=== PATIENT | female | born 1965 | race Caucasian/White ===

== ENCOUNTER 2019-10-10 09:41 | Outpatient (CLI) | payer OTHER ==
--- NOTE | 2019-10-10 11:11 | MRI ---
Exam: MRI thoracic spine without contrast HISTORY: Segmental somatic dysfunction of the thoracic spine. Back pain radiating to the legs. COMPARISON: None FINDINGS: Appropriate T1 marrow signal intensity of the thoracic vertebra. Thoracic spine vertebral body height is maintained. There is no fracture. Intrinsic T1 hyperintensity with associated T2 hyperintensity at T4, T10 and T12 compatible with a vertebral body hemangiomas. No significant STIR hyperintensity t o suggest vertebral body edema or ligamentous injury Visualized mediastinum is unremarkable. Visualized solid organs and lung parenchyma are unremarkable. Probable 0.8 cm cyst emanating from the upper pole of the right kidney The thoracic cord has a normal size and signal intensity. No cord malacia. No cord expansion. Conus m edullaris terminates beyond the upper aspect of L1 Throughout the thoracic spine, there is no significant central canal stenosis or significant neural f oraminal narrowing IMPRESSION: Unremarkable noncontrast thoracic spine MRI. No significant central canal stenosis or significant chris ral foraminal narrowing throughout the thoracic spine.
--- NOTE | 2019-10-10 11:38 | MRI ---
MRI LUMBAR SPINE WITHOUT CONTRAST: HISTORY: Low back pain. COMPARISON: None. FINDINGS: Appropriate T1 marrow signal intensity of the lumbar vertebrae. Lumbar spine vertebral body height is maintained. No fracture. No significant STIR hyperintensity to suggest vertebral body edema or ligamentous injury. Appropriate signal intensity of the paraspinal muscles. The visualized solid organs are grossly unremarkable. The conus medullaris terminates at the T12-L1 disc space. Spondylolisthesis: L4-L5: 1.2 mm of anterolisthesis T12-L1:Adequate disc hydration. No significant central canal stenosis or significant neural foraminal narrowing L1-L2: Adequate disc hydration. No significant central canal stenosis or significant neural foraminal narrowing. L2-L3: Adequate disc hydration. No significant central canal stenosis or significant neural foraminal narrowing. L3-L4: Adequate disc hydration. No significant central canal stenosis or significant neural foraminal narrowing. Trace amount of fluid in both facet joints. L4-L5: Adequate disc hydration. Generalized disc bulge minimally flattens the ventral thecal sac. No significant central canal stenosis. Minimal encroachment upon the right subarticular zone due to disc material and posterior element hypertrophy. Minimal obscuration of the traversing right L5 nerve root. Bilateral facet hypertrophy with fluid in both facet joints. Mild to moderate right neural foraminal narrowing. Left neural foramen is patent. L5-S1: No significant posterior disc abnormality. No significant central canal stenosis or significan t neural foraminal narrowing. IMPRESSION: 1. Grade 1 anterolisthesis of L4 upon L5. 2. Narrowing of the right subarticular zone with minimal encroachment due to disc material and food beverage attendant ior element hypertrophy. Minimal obscuration of the traversing right L5 nerve root. 3. Bilateral facet hypertrophy at L4-L5 with fluid in both facet joints. Transcribed Date/Time: 10/10/2019 11:45 AM
== END 2019-10-10 09:42 | disposition home or self-care (01) ==
LOC: BICMRI 09:41
PROVIDERS: ATTEND Chiropractor
DX: M99.03 Segmental and somatic dysfunction of lumbar region (principal); M54.5 Low back pain; M99.02 Segmental and somatic dysfunction of thoracic region; M54.6 Pain in thoracic spine; M43.16 Spondylolisthesis, lumbar region; M53.86 Other specified dorsopathies, lumbar region
CPT/HCPCS: 72146; 72148

== ENCOUNTER 2023-01-26 18:35 | Observation (INO) | payer SELFPAY ==
[2023-01-26 21:46] VITALS: BMI 29.8
[2023-01-27] MEDS ORDERED: Dextrose 50% Abboject 50 ML SYRINGE SLOW IVP PRN (02:11)
[2023-01-27] MEDS ORDERED: Dextrose 5% in Water 1,000 ML IV PRN (02:11)
[2023-01-27] MEDS ORDERED: Ondansetron PF 4 MG/2 ML Vial IVP PRN (02:11)
[2023-01-27] MEDS ORDERED: Ondansetron ODT 4 MG TAB PO PRN (02:11)
[2023-01-27] MEDS ORDERED: Acetaminophen 325 MG TAB PO PRN (02:11)
[2023-01-27] MEDS ORDERED: HumaLOG 300 UNITS/3 ML VIAL SC PRN (02:11)
[2023-01-27] MEDS ORDERED: Rosuvastatin 20 MG TAB PO SCH ×2 (03:00→21:00)
[2023-01-27 05:37] LABS: #Eosinphils 0.1 thou/uL (0.0-0.7); #Lymphocytes 1.9 thou/uL (1.20-3.40); #Monocytes 0.6 thou/uL (0.11-0.59); #Neutrophils 5.4 thou/uL (1.40-6.50); %Basophils 0.1 % (0.0-1.0); %Lymphocytes 23.9 % (21.0-51.0); %Monocytes 7.7 % (0.0-10.0); %Neutrophils 67.4 % (42.0-75.0); Hemoglobin 13.9 g/dL (12.0-16.0); Mean Corpuscular HGB CONC 35.2 g/dL (32.0-36.0); Mean Corpuscular Hemoglobin 32.5 pg (27.0-31.0); Mean Corpuscular Volume 92.3 fl (78.0-98.0); Mean Platelet Volume 6.9 fL (7.4-10.4); Platelet Count 207 10x3/uL (130-400); RBC Distribution Width 11.4 % (11.5-14.5); Red Blood Cell (RBC) Count 4.29 mill/uL (4.20-5.40)
[2023-01-27 06:02] LABS: SARS-CoV-2 NAA Rapid Test Not Detected (NotDetected)
[2023-01-27 06:12] LABS: Anion Gap 14 mmol/L (10-20); BUN (Urea Nitrogen) 5 mg/dL (9.8-20.1); Calc. Creatinine Clearance 130 mL/min (70-130); Calcium 8.3 mg/dL (7.8-10.44); Carbon Dioxide 22 mmol/L (22-29); Cardiac Risk 6.8 (Less than 4.5); Chloride 105 mmol/L (98-107); Cholesterol 252 mg/dl (< 200 Desired); Estimated GFR 106; Glucose 177 mg/dL (70-105); HDL Cholesterol 37 mg/dL (>60 Neg Risk); LDL Cholesterol, Calculated 167 mg/dL; Potassium 3.7 mmol/L (3.5-5.1); Sodium 137 mmol/L (136-145); Triglycerides 238 mg/dL (Less than 150)
[2023-01-27] MEDS: HumaLOG 300 UNITS/3 ML VIAL SC PRN ×2 (06:36→11:15)
[2023-01-27] MEDS ORDERED: Aspirin 81 mg Enteric Coated Tablet PO SCH (09:00)
[2023-01-27 12:06] VITALS: BP 146/90; TEMP 98
[2023-01-27] MEDS ORDERED: Atorvastatin Calcium 40 MG TAB PO SCH (21:00)
[2023-01-29] MEDS ORDERED: FLU VACC QS2022-23(6MOS UP)/PF 60 MCG/0.5 ML SYRINGE IM ONE (09:00)
== END 2023-01-27 17:45 | disposition home or self-care (01) ==
LOC: NEURO 20:15 → EDSTATUS 20:15
PROVIDERS: ADMIT Internal Medicine; ATTEND Internal Medicine
DX: R20.2 Paresthesia of skin (principal); I10 Essential (primary) hypertension; E78.5 Hyperlipidemia, unspecified; E11.65 Type 2 diabetes mellitus with hyperglycemia; B37.31 Acute candidiasis of vulva and vagina; Z79.84 Long term (current) use of oral hypoglycemic drugs; Z20.822 Contact with and (suspected) exposure to COVID-19
CPT/HCPCS: 36415; 36416; 70551; 80048; 80061; 83036; 85025; 93306; G0378; U0002